=== PATIENT | male | born 2005 | race Two or more races ===

== ENCOUNTER 2024-01-31 06:26 | Inpatient (IN) | payer BC ==
[~2024-01-31] VITALS: Ht 180.3 cm; Wt 84.0 kg
[~2024-01-31 06:26] MED LIST: HYDR-4902 PO; LEVO500T31 PO; METR500T PO
--- NOTE | 2024-01-31 06:44 | ED.PDOC ---
GI ASSESSMENT HPI Comments 19Y M with PMHx appendectomy presents to ED for chief complaint nausea/vomiting since 0400 today. Pt states he woke up at 0400 with extreme abd pain and then had one episode of diarrhea. After the diarrhea, pt began to vomit. Pt states this has been happening 1-2 times per week but today has been the worst episode. Pt denies all flu-like/cold symptoms. Pt was bitten by a stray cat on fingertip last week. Pt uses marijuana. Pt denies alcohol and tobacco use. No known allergies. Chief Complaint: Nausea/Vomiting Time Seen by MD: 06:37 Reviewed Notes: Medications, Allergies Allergies: Coded Allergies: NO KNOWN ALLERGIES (Unverified , 05/25/22) Home Meds Active Scripts Hydrocodone-Acetaminophen (Hydrocodone Bitartrate/AC 5-325 mg) 1 Tab Tab, 1 TAB PO Q6HR PRN, #20 TAB Prov:NEMESIO RICARDO MD 05/27/22 Metronidazole (Flagyl) 500 Mg Tab, 500 MG PO TID, #21 TAB Prov:NEMESIO RICARDO MD 05/27/22 Levofloxacin (Levaquin) 500 Mg Tab, 500 MG PO DAILY, #7 TAB Prov:NEMESIO RICARDO MD 05/27/22 Information Source: Patient Mode of Arrival: Ambulatory Timing: Hours Duration: Since onset Quality: Sharp Vomitus: Watery Stool: Watery Severity: Moderate Recent: None Recent Hx of: None Pain Location: Diffuse Modifying Factors: Nothing Associated sign and symptoms: Nausea, Vomiting, Diarrhea, Abdominal Pain Past Medical History PAST MEDICAL HISTORY: Denies Surgical History: Appendectomy Family History Family History: Reviewed,noncontributory to illness Social History Smoker: Non-Smoker Alcohol: Denies ETOH Use Drugs: Marijuana Lives In: Home Constitutional: denies: chills, diaphoresis, fatigue, fever, malaise, sweats, weakness, others EENTM: denies: blurred vision, double vision, ear bleeding, ear discharge, ear drainage, ear pain, ear ringing, eye pain, eye redness, hearing loss, mouth pain, mouth swelling, nasal discharge, nose bleeding, nose congestion, nose pain, photophobia, tearing, throat pain, throat swelling, voice changes, others Respiratory: denies: cough, hemoptysis, orthopnea, SOB at rest, shortness of breath, SOB with excertion, stridor, wheezing, others Cardiovascular: denies: chest pain, dizzy spells, diaphoresis, Dyspnea on exertion, edema, irregular heart beat, left arm pain, lightheadedness, palpitations, PND, syncope, others Gastrointestinal: reports: abdominal pain, diarrhea, nausea, vomiting; denies: abdomen distended, blood streaked bowels, constipated, dysphagia, difficulty swallowing, hematemesis, melena, poor appetite, poor fluid intake, rectal bleeding, rectal pain, others Genitourinary: denies: burning, dysuria, flank pain, frequency, hematuria, incontinence, penile discharge, penile sore, pain, testicle pain, testicle swelling, urgency, others Neurological: denies: dizziness, fainting, headache, left sided numbness, left sided weakness, numbness, paresthesia, pre-existing deficit, right sided numbness, right sided weakness, seizure, speech problems, tingling, tremors, weakness, others Musculoskeletal: denies: back pain, gout, joint pain, joint swelling, muscle pain, muscle stiffness, neck pain, others Integumetry: denies: bruises, change in color, change in hair/nails, dryness, laceration, lesions, lumps, rash, wounds, others Allergic/Immunocompromised: denies: Difficulty Healing, Frequent Infections, Hives, Itching, others Hematologic/Lymphatic: denies: anemia, blood clots, easy bleeding, easy bruising, swollen glands, others Endocrine: denies: excessive hunger, excessive sweating, excessive thirst, excessive urination, flushing, intolerance to cold, intolerance to heat, unexplained weight gain, unexplained weight loss, others Psychiatric: denies: anxiety, bipolar disorder, depression, hopeless, panic disorder, schizophrenia, sleepless, suicidal, others All Other Systems: Reviewed and Negative Physical Exam General Appearance: Moderate Distress, Normal HEENT: Normal ENT Inspection, Pharynx Normal, TMs Normal Neck: Full Range of Motion, Non-Tender, Normal, Normal Inspection Respiratory: Chest Non-Tender, Lungs Clear, No Accessory Muscle Use, No Respiratory Distress, Normal Breath Sounds Cardiovascular: No Edema, No JVD, No Murmur, No Gallop, Normal Peripheral Pulses, Regular Rate/Rhythm Breast Exam: Deferred Gastrointestinal: No Organomegaly, Non Tender, No Pulsatile Mass, Normal Bowel Sounds, Soft Genitalia: Deferred Pelvic: Deferred Rectal: Deferred Extremities: No calf tenderness, Normal capillary refill, Normal inspection, Normal range of motion, Non-tender, No pedal edema Musculoskeletal : Apperance: Normal Neurologic: Alert, offal separator II-XII nml as Tested, No Motor Deficits, Normal Affect, Normal Mood, No Sensory Deficits Cerebellar Function: Normal Reflexes: Normal Skin: Dry, Normal Color, Warm Peripheral Pulses: 3+ Radial (R), 3+ Radial (L) Lymphatic: No Adenopathy Was a procedure done? Was a procedure done?: No GI differential Dx Differential Diagnosis: Constipation, Diverticular disease, Esophagitis, Gastritis/PUD, Gastroenteritis, Electrolyte Imbalance X-Ray, Labs, Meds, VS Vital Signs Date Time Temp Pulse Resp B/P (MAP) Pulse Ox O2 Delivery O2 Flow Rate FiO2 01/31/24 12:00 76 17 114/46 (68) 98 01/31/24 12:00 60 01/31/24 10:00 103 17 111/52 (71) 100 01/31/24 08:00 61 01/31/24 08:00 60 19 98 Room Air* 0 21 01/31/24 08:00 97.8 60 19 119/66 (83) 98 97.8 01/31/24 06:27 97.7 76 16 163/64 (97) 96 Lab Test 01/31/24 07:29 01/31/24 06:56 Range/Units Urine Color Yellow Yellow Urine Clarity Clear Clear Urine pH 6.0 5.0-9.0 Urine Specific [place] 1.026 1.001-1.035 Urine Protein Trace H Negative Urine Ketones 2+ H Negative Urine Blood Negative Negative /uL Urine Nitrite Negative Negative Urine Bilirubin Negative Negative Urine Urobilinogen Normal Negative mg/dL Urine Leukocyte Esterase Negative Negative /uL Urine RBC None seen 0 - 3 /hpf Urine WBC 1 0 - 3 /hpf Urine Squamous Epithelial Cells Few <5 /hpf Urine Bacteria None seen None Seen /hpf Urine Mucus Few None Seen Urine Glucose Normal Normal mg/dL White Blood Count 13.2 H 4.4-10.8 10^3/uL Red Blood Count 4.63 4.5-5.90 10^6/uL Hemoglobin 15.3 13.5-17.5 g/dL Hematocrit 43.4 41.0-53.0 % Mean Corpuscular Volume 93.7 80.0-100.0 fL Mean Corpuscular Hemoglobin 33.0 H 28.0-32.0 pg Mean Corpuscular Hemoglobin Concent 35.3 32.0-36.0 g/dL Red Cell Distribution Width 12.4 11.8-14.3 % Platelet Count 260 140-450 10^3/uL Mean Platelet Volume 8.5 6.9-10.8 fL Neutrophils (%) (Auto) 89.1 H 37.0-80.0 % Lymphocytes (%) (Auto) 5.6 L 10.0-50.0 % Monocytes (%) (Auto) 4.8 0.0-12.0 % Eosinophils (%) (Auto) 0.4 0.0-7.0 % Basophils (%) (Auto) 0.1 0.0-2.0 % Neutrophils # (Auto) 11.7 H 1.6-8.6 10 ^3/uL Lymphocytes # (Auto) 0.7 0.4-5.4 10 ^3/uL Monocytes # (Auto) 0.6 0-1.3 10 ^3/uL Eosinophils # (Auto) 0 0-0.8 10 ^3/uL Basophils # (Auto) 0 0-0.2 10 ^3/uL Nucleated Red Blood Cells 0.0 % Sodium Level 143 136-145 mmol/L Potassium Level 3.8 3.5-5.1 mmol/L Chloride Level 107 98-107 mmol/L Carbon Dioxide Level 23 20-31 mmol/L Anion Gap 13 5-15 Blood Urea Nitrogen 12 9-23 mg/dL Creatinine 0.97 0.700-1.30 mg/dL Glomerular Filtration Rate Calc 115 >90 mL/min BUN/Creatinine Ratio 12.4 10.0-20.0 Serum Glucose 107 H 74-106 mg/dL Calcium Level 10.4 8.7-10.4 mg/dL Current Medications Medications (Trade) Dose Ordered Sig/Eren Route Start Time Stop Time Status Last Admin Sodium Chloride 1,000 ml @ 1,000 mls/hr Q1H ONCE IV 01/31/24 06:45 01/31/24 07:44 DC 01/31/24 06:45 Ondansetron HCl (Zofran) 4 mg ONCE ONCE IV 01/31/24 06:45 01/31/24 06:46 DC 01/31/24 07:18 Metronidazole 100 ml @ 100 mls/hr ONCE ONCE IV 01/31/24 10:45 01/31/24 11:44 DC 01/31/24 11:[address] [address] Ph: [phone] DIAGNOSTIC IMAGING Diagnostic Imaging Report : [id number] Signed PATIENT: CONY POWELL ACCT: [id number] UNIT: [id number] : 2005 LOC: OVERFLOW ROOM / BED: 1015-ER / A AGE / SEX: 19 / M ADM STATUS: ADM IN SERVICE 1045 ORDERING PHYSICIAN: AARON JAMES MD PROCEDURE(s): ABPL - CT AB PEL WO CON-NO ORAL OR IV REASON: enteritis ORDER NUMBER(s): [id number], ACCESSION NUMBER(s): [id number] Exam: CT CT AB PEL WO CON-NO ORAL OR IV History: enteritis Comparison Study: CT CT AB PEL WO CON-NO ORAL OR IV on DOS: 05/25/22 Technique: Multidetector spiral CT of the abdomen was performed from lung bases to pubic symphysis. Imaging was performed without IV contrast. Axial, coronal and sagittal multiplanar reformats were obtained from the axial data set by the technologist. Radiation Dose : 1. Abdomen/Pelvis: CTDIvol 10.8 mGy, DLP 534.57 mGy*cm. Findings: Evaluation of solid organs is limited due to lack of intravenous contrast use. Lung Bases: No acute or significant lung base finding. Normal heart size. No pleural or pericardial effusion. Liver: The liver is normal in size. No focal lesions. Gallbladder and Biliary Tree: Unremarkable Spleen: Unremarkable Pancreas: The pancreas is grossly normal in appearance. Adrenal Glands: Unremarkable Kidneys: Kidneys are grossly normal without calculi or hydronephrosis. Bladder: Grossly unremarkable for degree of distention. Bowel: The stomach is grossly normal in appearance. Mild wall thickening seen in the descending colon with adjacent fat stranding, possibly related to infectious/inflammatory colitis. Status post appendectomy. Ascites: Absent Lymphadenopathy: No mesenteric, retroperitoneal or periportal lymphadenopathy. Abdominal Wall and Mesentery: Unremarkable. Vasculature: The visualized abdominal aorta is normal in size and caliber. Evaluation of abdominal and pelvic vessels is limited due to lack of intravenous contrast. Pelvic Organs: Unremarkable Musculoskeletal: No aggressive focal bony lesions, acute fractures or dislocation. IMPRESSION: 1. Mild wall thickening seen in the descending colon with adjacent fat stranding, possibly related to infectious/inflammatory colitis. No drainable fluid collection. No free air. Radiation optimization: All CT scans at this facility use at least one of these dose optimization techniques: automated exposure control mA and/or kV adjustment per patient size (includes targeted exams where dose is matched to clinical indication) or iterative reconstruction. ATED BY: GUSTAVO MENDEZ MD DICTATED DATE/TIME: 01/31/241407 SIGNED BY: GUSTAVO MENDEZ MD SIGNED DATE/TIME: 01/31/241407 CC: Patient alert. Complaining of nausea vomiting. Has been having these symptoms on and off for many years. Vitals stable. Answering questions. Abdomen is soft nontender. Blood pressure slightly elevated. He does not take any medication. Reviewed his history. Explained to the patient. Establish intravenous access. Was given fluids. Was given Zofran. Continue cardiac monitoring. Time of 1ST Reevaluation: 07:07 Reevaluation 1ST: Improved Patient Education/Counseling: Diagnosis, Treatment Family Education/Counseling: No Family Present Departure 1 Departure Time of Disposition: 07:02 Impression: Primary Impression: Gastroenteritis Disposition: 09 ADMITTED INPATIENT Admit to: Med Surg Condition: Guarded Critical Care Note Critical Care Time?: No Stability Stability form required: No Heart Score Heart Score: Heart Score Response (Comments) Value History N/A 0 EKG N/A 0 Age N/A 0 Risk Factors N/A 0 Troponin N/A 0 Total 0 I personally scribed for AARON JAMES MD ([email or web address]) on 01/31/24 at 06:44. Electronically submitted by Princess Melendez ([employer]). I personally scribed for AARON JAMES MD ([email or web address]) on 01/31/24 at 14:28. Electronically submitted by Princess Melendez ([employer]). AARON JAMES MD Jan 31, 2024 06:44
[2024-01-31] MEDS: SODIUM CHLORIDE 0.9% 1,000 ML IV ONE ×2 (06:45→12:57)
[2024-01-31 07:13] LABS: Basophils # (auto) 0 10 ^3/uL (0-0.2); Basophils % (auto) 0.1 % (0.0-2.0); Eosinophils # (auto) 0 10 ^3/uL (0-0.8); Eosinophils % (auto) 0.4 % (0.0-7.0); Hematocrit 43.4 % (41.0-53.0); Hemoglobin 15.3 g/dL (13.5-17.5); Lymphocytes # (auto) 0.7 10 ^3/uL (0.4-5.4); Lymphocytes % (auto) 5.6 % (10.0-50.0); Mean Corpuscular Hgb Conc. 35.3 g/dL (32.0-36.0); Mean Corpuscular Volume 93.7 fL (80.0-100.0); Monocytes # (auto) 0.6 10 ^3/uL (0-1.3); Monocytes % (auto) 4.8 % (0.0-12.0); Neutrophils # (auto) 11.7 10 ^3/uL (1.6-8.6); Neutrophils % (auto) 89.1 % (37.0-80.0); Platelet Count (auto) 260 10^3/uL (140-450); Red Blood Cells 4.63 10^6/uL (4.5-5.90); Red Cell Distribution Width 12.4 % (11.8-14.3); White Blood Cell 13.2 10^3/uL (4.4-10.8)
[2024-01-31] MEDS: ONDANSETRON HCL 4 MG/2 ML VIAL IV ONE (07:18)
[2024-01-31 07:20] LABS: Chloride 107 mmol/L (98-107); Potassium 3.8 mmol/L (3.5-5.1); Sodium 143 mmol/L (136-145)
[2024-01-31 07:21] LABS: Anion Gap 13 (5-15); Carbon Dioxide 23 mmol/L (20-31)
[2024-01-31 07:22] LABS: Calcium 10.4 mg/dL (8.7-10.4)
[2024-01-31 07:27] LABS: BUN/Creatinine Ratio 12.4 (10.0-20.0); Blood Urea Nitrogen 12 mg/dL (9-23); Glucose 107 mg/dL (74-106)
[2024-01-31 08:00] VITALS: PULSE 60; RESP 19; O2SAT 98
[2024-01-31 10:54] LABS: Urine Bacteria None Seen /hpf (None Seen)
[2024-01-31 11:00] LABS: Urine Blood Negative /uL (Negative); Urine Clarity Clear (Clear); Urine Color Yellow (Yellow); Urine Mucus FEW (None Seen); Urine Protein, UAD TRACE (Negative); Urine Specific Gravity 1.026 (1.001-1.035); Urine Urobilinogen Normal (Negative); Urine WBC 1 /hpf (0 - 3)
[2024-01-31] MEDS: metroNIDAZOLE 500MG/100ML 100 ML IV ONE (11:00)
[2024-01-31] MEDS ORDERED: ACETAMINOPHEN 325 MG TAB PO PRN (12:45)
[2024-01-31] MEDS ORDERED: ONDANSETRON HCL 4 MG/2 ML VIAL IV PRN (12:45)
[2024-01-31] MEDS: SODIUM CHLORIDE 0.9% 1,000 ML IV SCH (12:57)
[2024-01-31] MEDS: PANTOPRAZOLE 40 MG/10 ML VIAL INJ IV ONE (12:57)
--- NOTE | 2024-01-31 13:27 | DVHHP2 ---
History of Present Illness Reason for Visit: Abdominal pain likely due to food poisoning History of Present Illness This is a 19-year-old male with history of appendectomy presents to ED with chief complaint of nausea, vomiting and diarrhea that started this morning at 4:00 a.m.. The patient admits to using marijuana. Upon evaluation of patient he comments on eating at a restaurant [place] soup last night in which symptoms occurred hours later. He denied having symptoms of this before and would like to be further evaluated and treated. The patient will be admitted under hospitalist care to the medical-surgical unit and received IV hydration along with IV antibiotics that was started in the ER. The patient denies fever, chills, headache, dizziness, palpitation, chest pain, shortness of breath, constipation and other associated symptoms. The plan has been discussed with the patient in which all questions concerns have been addressed. Past Surgical History: Appendectomy Smoke: No ALCOHOL: none Drugs: Marijuana Lives: with Family Domestic Violence: Neg Review of Systems Gastrointestinal: Nausea, Vomiting, Abdominal Pain, Diarrhea Allergies: Coded Allergies: NO KNOWN ALLERGIES (Unverified , 05/25/22) Medications Current Medications Medications Dose Ordered Sig/Eren Route Start Time Stop Time Status Last Admin Dose Admin Metronidazole 100 ml @ 100 mls/hr Q8HR IV 01/31/24 14:00 Ondansetron HCl 4 mg Q6HPRN PRN IV 01/31/24 12:45 Sodium Chloride 1,000 ml @ 75 mls/hr [id number] IV 01/31/24 12:45 Acetaminophen 650 mg Q6HP PRN PO 01/31/24 12:45 Pantoprazole Sodium 40 mg DAILY IV 02/01/24 10:00 Exam Vital Signs Vital Signs Date Time Temp Pulse Resp B/P (MAP) Pulse Ox O2 Delivery O2 Flow Rate FiO2 01/31/24 12:00 76 17 114/46 (68) 98 01/31/24 08:00 Room Air* 0 21 01/31/24 08:00 97.8 97.8 General Appearance: Alert, Oriented X3, Cooperative, No acute distress HEENT: Atraumatic, PERRLA, Mucous membr. moist/pink Respiratory: Clear to auscultation, Normal air movement Cardiovascular: Normal S1, Normal S2, No murmurs Abdominal: Normal bowel sounds, Soft, No tenderness, No hepatospenomegaly, No masses Extremities: No clubbing, No cyanosis, No edema, Normal pulses, No tenderness/swelling Skin: No rashes, No breakdown Neuro: Normal gait, Normal speech, Strength at 5/5 X4 ext, Normal tone, Sensation intact, Cranial nerves 3-12 NL Psych/Mental Status: Mental status NL Labs/Xrays Labs Test 01/31/24 07:29 01/31/24 06:56 Range/Units Urine Color Yellow Yellow Urine Clarity Clear Clear Urine pH 6.0 5.0-9.0 Urine Specific [place] 1.026 1.001-1.035 Urine Protein Trace H Negative Urine Ketones 2+ H Negative Urine Blood Negative Negative /uL Urine Nitrite Negative Negative Urine Bilirubin Negative Negative Urine Urobilinogen Normal Negative mg/dL Urine Leukocyte Esterase Negative Negative /uL Urine RBC None seen 0 - 3 /hpf Urine WBC 1 0 - 3 /hpf Urine Squamous Epithelial Cells Few <5 /hpf Urine Bacteria None seen None Seen /hpf Urine Mucus Few None Seen Urine Glucose Normal Normal mg/dL White Blood Count 13.2 H 4.4-10.8 10^3/uL Red Blood Count 4.63 4.5-5.90 10^6/uL Hemoglobin 15.3 13.5-17.5 g/dL Hematocrit 43.4 41.0-53.0 % Mean Corpuscular Volume 93.7 80.0-100.0 fL Mean Corpuscular Hemoglobin 33.0 H 28.0-32.0 pg Mean Corpuscular Hemoglobin Concent 35.3 32.0-36.0 g/dL Red Cell Distribution Width 12.4 11.8-14.3 % Platelet Count 260 140-450 10^3/uL Mean Platelet Volume 8.5 6.9-10.8 fL Neutrophils (%) (Auto) 89.1 H 37.0-80.0 % Lymphocytes (%) (Auto) 5.6 L 10.0-50.0 % Monocytes (%) (Auto) 4.8 0.0-12.0 % Eosinophils (%) (Auto) 0.4 0.0-7.0 % Basophils (%) (Auto) 0.1 0.0-2.0 % Neutrophils # (Auto) 11.7 H 1.6-8.6 10 ^3/uL Lymphocytes # (Auto) 0.7 0.4-5.4 10 ^3/uL Monocytes # (Auto) 0.6 0-1.3 10 ^3/uL Eosinophils # (Auto) 0 0-0.8 10 ^3/uL Basophils # (Auto) 0 0-0.2 10 ^3/uL Nucleated Red Blood Cells 0.0 % Sodium Level 143 136-145 mmol/L Potassium Level 3.8 3.5-5.1 mmol/L Chloride Level 107 98-107 mmol/L Carbon Dioxide Level 23 20-31 mmol/L Anion Gap 13 5-15 Blood Urea Nitrogen 12 9-23 mg/dL Creatinine 0.97 0.700-1.30 mg/dL Glomerular Filtration Rate Calc 115 >90 mL/min BUN/Creatinine Ratio 12.4 10.0-20.0 Serum Glucose 107 H 74-106 mg/dL Calcium Level 10.4 8.7-10.4 mg/dL Assessment/Plan Assessment/Plan Abdominal pain likely due to food poisoning--patient presents to ED with abdominal pain associated with nausea, vomiting and diarrhea that started this morning at 4:00 a.m. Patient comments on having a [place] soup last night when symptoms occurred hours later No previous history History of appendectomy Admit to medical-surgical unit Reviewed CBC shows leukocytosis Reviewed BMP which is normal Urinalysis is normal Order a CT abdomen/pelvis pending result IV hydration IV antibiotics Toradol for pain IV Zofran as needed for nausea IV Protonix now and daily Ova and parasite pending Stool bacterial culture pending C diff pending Reconcile home medication DVT prophylaxis not indicated patient ambulatory PUD prophylaxis Labs in a.m. Discussed plan of care with the patient in which all questions concerns have been addressed Plan discussed with: Patient My Orders Orders - KEVIN NAYLOR [employer] Procedure Category Date Status Time Metronidazole PHA 01/31/24 In Process 500mg/100ml (Flagyl 14:00 Sodium Chloride 0.9% PHA 01/31/24 In Process 12:45 Ondansetron Hcl PHA 01/31/24 In Process (Zofran) 12:45 Admit ADMIT 01/31/24 Transmitted 12:42 Sodium Chloride 0.9% PHA 01/31/24 In Process 12:45 Complete Blood Count LAB 02/01/24 Verified 04:00 Comprehensive LAB 02/01/24 Verified Metabolic Panel 04:00 Condition: Fair STACEY 01/31/24 In Process 12:42 Acetaminophen Tablet PHA 01/31/24 In Process (Tylenol Tablet) 12:45 Clear Liq Diet DIET 01/31/24 Transmitted Lunch BRP STACEY 01/31/24 In Process 12:42 Ova & Parasite Exam SUMMER 01/31/24 Logged 12:44 Clostridium Difficile SUMMER 01/31/24 Logged Toxin 12:44 Stool Bacterial SUMMER 01/31/24 Logged Culture 12:44 Pantoprazole PHA 02/01/24 In Process (Protonix) 10:00 Date of Service: Jan 31, 2024 Billing Provider: KEVIN NAYLOR Common Visit Codes: [id number] INP/OBS CARE (HIGH) KEVIN NAYLOR Jan 31, 2024 13:27
--- NOTE | 2024-01-31 14:10 | DVH ---
Exam: CT CT AB PEL WO CON-NO ORAL OR IV History: enteritis Comparison Study: CT CT AB PEL WO CON-NO ORAL OR IV on DOS: 05/25/22 Technique: Multidetector spiral CT of the abdomen was performed from lung bases to pubic symphysis. Imaging was performed without IV contrast. Axial, coronal and sagittal multiplanar reformats were ob tained from the axial data set by the technologist. Radiation Dose : 1. Abdomen/Pelvis: CTDIvol 10.8 mGy, DLP 534.57 mGy*cm. Findings: Evaluation of solid organs is limited due to lack of intravenous contrast use. Lung Bases: No acute or significant lung base finding. Normal heart size. No pleural or pericardial effusion. Liver: The liver is normal in size. No focal lesions. Gallbladder and Biliary Tree: Unremarkable Spleen: Unremarkable Pancreas: The pancreas is grossly normal in appearance. Adrenal Glands: Unremarkable Kidneys: Kidneys are grossly normal without calculi or hydronephrosis. Bladder: Grossly unremarkable for degree of distention. Bowel: The stomach is grossly normal in appearance. Mild wall thickening seen in the descending colon with adjacent fat stranding, possibly related to infectious/inflammatory colitis. Status post appen dectomy. Ascites: Absent Lymphadenopathy: No mesenteric, retroperitoneal or periportal lymphadenopathy. Abdominal Wall and Mesentery: Unremarkable. Vasculature: The visualized abdominal aorta is normal in size and caliber. Evaluation of abdominal a nd pelvic vessels is limited due to lack of intravenous contrast. Pelvic Organs: Unremarkable Musculoskeletal: No aggressive focal bony lesions, acute fractures or dislocation. IMPRESSION: 1. Mild wall thickening seen in the descending colon with adjacent fat stranding, possibly related to infectious/inflammatory colitis. No drainable fluid collection. No free air. Radiation optimization: All CT scans at this facility use at least one of these dose optimization jeff hniques: automated exposure control mA and/or kV adjustment per patient size (includes targeted exam s where dose is matched to clinical indication) or iterative reconstruction.
[2024-01-31] MEDS: metroNIDAZOLE 500MG/100ML 100 ML IV SCH (14:42)
[2024-02-01 03:36] LABS: Basophils # (auto) 0 10 ^3/uL (0-0.2); Basophils % (auto) 0.3 % (0.0-2.0); Eosinophils # (auto) 0 10 ^3/uL (0-0.8); Eosinophils % (auto) 0.6 % (0.0-7.0); Hematocrit 36.1 % (41.0-53.0); Hemoglobin 12.8 g/dL (13.5-17.5); Lymphocytes # (auto) 0.9 10 ^3/uL (0.4-5.4); Lymphocytes % (auto) 15.2 % (10.0-50.0); Mean Corpuscular Hemoglobin 33.4 pg (28.0-32.0); Mean Corpuscular Hgb Conc. 35.6 g/dL (32.0-36.0); Mean Corpuscular Volume 93.9 fL (80.0-100.0); Monocytes # (auto) 0.8 10 ^3/uL (0-1.3); Monocytes % (auto) 13.2 % (0.0-12.0); Neutrophils # (auto) 4.3 10 ^3/uL (1.6-8.6); Neutrophils % (auto) 70.7 % (37.0-80.0); Nucleated Red Blood Cells % 0.1 %; Platelet Count (auto) 185 10^3/uL (140-450); Red Blood Cells 3.84 10^6/uL (4.5-5.90); Red Cell Distribution Width 12.7 % (11.8-14.3); White Blood Cell 6.1 10^3/uL (4.4-10.8)
[2024-02-01 04:06] LABS: Alkaline Phosphatase 55 U/L (46-116); Anion Gap 8 (5-15); Aspartate Aminotransferase < 8 U/L (13-40); BUN/Creatinine Ratio 8.2 (10.0-20.0); Bilirubin, Total 1.1 mg/dL (0.2-1.0); Blood Urea Nitrogen 7 mg/dL (9-23); Calcium 9.4 mg/dL (8.7-10.4); Carbon Dioxide 24 mmol/L (20-31); Chloride 110 mmol/L (98-107); Glucose 90 mg/dL (74-106); Potassium 3.9 mmol/L (3.5-5.1); Sodium 142 mmol/L (136-145); Total Protein 6.1 g/dL (5.7-8.2)
[2024-02-01 04:11] LABS: Alanine Aminotransferase < 9 U/L (7-40)
[2024-02-01 08:05] VITALS: PULSE 63; RESP 99; O2SAT 99
[2024-02-01 09:20] VITALS: PULSE 60; RESP 16; O2SAT 99
[2024-02-01] MEDS: PANTOPRAZOLE 40 MG/10 ML VIAL INJ IV SCH (11:20)
[2024-02-01 13:23] VITALS: BP 125/57; PULSE 57; RESP 18; TEMP 99.1; O2SAT 98
--- NOTE | 2024-02-01 14:20 | DVHPN2 ---
Subjective Patient denies any symptoms at this time. States that he has not had any diarrhea today. Reviewed: Care Plan, H&P, Labs Changes from previous H/P or p: No Changes General: Per HPI Gastrointestinal: Nausea, Vomiting, Abdominal Pain, Diarrhea Objective Vitals Vital Signs Date Time Temp Pulse Resp B/P (MAP) Pulse Ox O2 Delivery O2 Flow Rate FiO2 02/01/24 13:23 99.1 57 18 125/57 (79) 98 99.1 02/01/24 09:20 Room Air* 0 21 Intake/Output Intake and Output 02/01/24 07:00 Intake Total 3750 ml Output Total 50 ml Balance 3700 ml Intake IV Total 3750 ml Output Emesis 50 ml General Appearance: Alert, Oriented X3, Cooperative, No acute distress HEENT: Atraumatic, PERRLA Lungs: Clear to auscultation, Normal air movement Cardiovascular: Normal S1, Normal S2 Abdomen: Normal bowel sounds Musculoskeletal: Normal sensory function, Normal motor function Neuro: Normal gait, Normal speech Psych/Mental Status: Mental status NL, Mood NL Medications Current Medications Medications Dose Ordered Sig/Eren Route Start Time Stop Time Status Last Admin Dose Admin Metronidazole 100 ml @ 100 mls/hr Q8HR IV 01/31/24 14:00 02/01/24 13:46 100 MLS/HR Ondansetron HCl 4 mg Q6HPRN PRN IV 01/31/24 12:45 Sodium Chloride 1,000 ml @ 75 mls/hr [id number] IV 01/31/24 12:45 02/01/24 13:20 75 MLS/HR Acetaminophen 650 mg Q6HP PRN PO 01/31/24 12:45 Pantoprazole Sodium 40 mg DAILY IV 02/01/24 10:00 02/01/24 11:20 40 MG Laboratory Results Laboratory Tests 02/01/24 03:15 Chemistry Test 02/01/24 03:15 Albumin 4.0 g/dL (3.2-4.8) Calcium Level 9.4 mg/dL (8.7-10.4) Total Protein 6.1 g/dL (5.7-8.2) LFT Test 02/01/24 03:15 Alanine Aminotransferase (ALT) < 9 U/L (7-40) Alkaline Phosphatase 55 U/L (46-116) Aspartate Amino Transferase (AST) < 8 U/L (13-40) L Total Bilirubin 1.1 mg/dL (0.2-1.0) H Urinalysis Test 01/31/24 07:29 Urine Color Yellow (Yellow) Urine Clarity Clear (Clear) Urine pH 6.0 (5.0-9.0) Urine Specific [place] 1.026 (1.001-1.035) Urine Protein Trace (Negative) H Urine Ketones 2+ (Negative) H Urine Blood Negative /uL (Negative) Urine Nitrite Negative (Negative) Urine Bilirubin Negative (Negative) Urine Urobilinogen Normal mg/dL (Negative) Urine Leukocyte Esterase Negative /uL (Negative) Urine RBC None seen /hpf (0 - 3) Urine WBC 1 /hpf (0 - 3) Urine Squamous Epithelial Cells Few /hpf (<5) Urine Bacteria None seen /hpf (None Seen) Urine Mucus Few (None Seen) Urine Glucose Normal mg/dL (Normal) Microbiology Microbiology Date/Time Source Procedure Growth Status 01/31/24 07:29 Urine - Midstream Clean Catch Urine Culture - Preliminary Resulted Labs and/or images reviewed: Labs reviewed by me, Image(s) reviewed by me Assessment/Plan Assessment/Plan Impression: -leukocytosis -acute colitis -rule out C diff Plan: -continue antibiotic therapy -stool culture -continue gentle IV hydration -advanced to regular diet -repeat labs in a.m. Total time spent with patient discussing and formulating plan of care: 35 minutes. This medical document was created using an electronic medical record system with [employer] dictation system. Although this document has been carefully reviewed, there may still be some phonetic and typographical errors. These areas are purely typographical due to imperfections of the software programs, and do not reflect any compromise in the patient's medical care. Plan discussed with: Patient, Other (RN) Date of Service: Feb 01, 2024 Billing Provider: CAROL SCHAFFER NP Common Visit Codes: [id number] INP/OBS CARE(HIGH) CAROL SCHAFFER NP Feb 01, 2024 14:20
[2024-02-01 17:00] VITALS: BP 126/67; PULSE 48; RESP 19; TEMP 98.1; O2SAT 99
[2024-02-01 20:00] VITALS: O2SAT 97
[2024-02-01 21:00] VITALS: BP 114/75; PULSE 57; RESP 20; TEMP 98; O2SAT 98
[2024-02-02 01:00] VITALS: BP 122/68; PULSE 58; RESP 20; TEMP 97.5; O2SAT 97
[2024-02-02 05:03] VITALS: BP 110/48; PULSE 50; RESP 20; TEMP 97.6; O2SAT 100
[2024-02-02 07:27] LABS: Basophils # (auto) 0 10 ^3/uL (0-0.2); Basophils % (auto) 0.7 % (0.0-2.0); Eosinophils # (auto) 0.1 10 ^3/uL (0-0.8); Eosinophils % (auto) 3.1 % (0.0-7.0); Hematocrit 41.1 % (41.0-53.0); Hemoglobin 14.4 g/dL (13.5-17.5); Lymphocytes # (auto) 1.3 10 ^3/uL (0.4-5.4); Lymphocytes % (auto) 26.4 % (10.0-50.0); Mean Corpuscular Hemoglobin 33.2 pg (28.0-32.0); Mean Corpuscular Hgb Conc. 35.1 g/dL (32.0-36.0); Mean Corpuscular Volume 94.5 fL (80.0-100.0); Monocytes # (auto) 0.8 10 ^3/uL (0-1.3); Monocytes % (auto) 16.4 % (0.0-12.0); Neutrophils # (auto) 2.5 10 ^3/uL (1.6-8.6); Neutrophils % (auto) 53.4 % (37.0-80.0); Nucleated Red Blood Cells % 0.3 %; Platelet Count (auto) 209 10^3/uL (140-450); Red Blood Cells 4.35 10^6/uL (4.5-5.90); Red Cell Distribution Width 12.6 % (11.8-14.3); White Blood Cell 4.7 10^3/uL (4.4-10.8)
[2024-02-02 07:35] LABS: Chloride 108 mmol/L (98-107); Potassium 4.4 mmol/L (3.5-5.1); Sodium 142 mmol/L (136-145)
[2024-02-02 07:36] LABS: Anion Gap 7 (5-15); Carbon Dioxide 27 mmol/L (20-31)
[2024-02-02 07:41] LABS: BUN/Creatinine Ratio 9.4 (10.0-20.0); Blood Urea Nitrogen 10 mg/dL (9-23); Glucose 83 mg/dL (74-106)
[2024-02-02 08:00] VITALS: PULSE 81; RESP 16; O2SAT 98
[2024-02-02 09:00] VITALS: BP 118/70; PULSE 86; RESP 18; TEMP 97.6; O2SAT 98
[2024-02-02 12:38] VITALS: BP 134/64; PULSE 52; RESP 18; TEMP 98; O2SAT 98
[2024-02-02] MEDS ORDERED: METR-344 PO (13:27)
[2024-02-02] MEDS ORDERED: HYDROcodone-ACET 5/325MG TAB PO PRN (13:30)
[2024-02-02] MEDS ORDERED: ACETAMINOPHEN 500 MG TAB PO PRN (13:30)
[2024-02-02] MEDS ORDERED: ONDANSETRON HCL 4 MG/2 ML VIAL IV PRN (13:30)
[2024-02-02] MEDS ORDERED: MORPHINE SULFATE INJ 2 MG/ml SYRG IV PRN (13:30)
--- NOTE | 2024-02-02 13:40 | DVHDS2 ---
Discharge Summary Date of Admission Jan 31, 2024 at 12:42 Date of Discharge: Feb 02, 2024 Admitting Diagnosis Abdominal pain Labs/Diagnostic Data: Laboratory Results Test 02/02/24 05:32 02/01/24 03:15 01/31/24 07:29 White Blood Count 4.7 10^3/uL (4.4-10.8) Red Blood Count 4.35 10^6/uL (4.5-5.90) Hemoglobin 14.4 g/dL (13.5-17.5) Hematocrit 41.1 % (41.0-53.0) Mean Corpuscular Volume 94.5 fL (80.0-100.0) Mean Corpuscular Hemoglobin 33.2 pg (28.0-32.0) Mean Corpuscular Hemoglobin Concent 35.1 g/dL (32.0-36.0) Red Cell Distribution Width 12.6 % (11.8-14.3) Platelet Count 209 10^3/uL (140-450) Mean Platelet Volume 8.9 fL (6.9-10.8) Neutrophils (%) (Auto) 53.4 % (37.0-80.0) Lymphocytes (%) (Auto) 26.4 % (10.0-50.0) Monocytes (%) (Auto) 16.4 % (0.0-12.0) Eosinophils (%) (Auto) 3.1 % (0.0-7.0) Basophils (%) (Auto) 0.7 % (0.0-2.0) Neutrophils # (Auto) 2.5 10 ^3/uL (1.6-8.6) Lymphocytes # (Auto) 1.3 10 ^3/uL (0.4-5.4) Monocytes # (Auto) 0.8 10 ^3/uL (0-1.3) Eosinophils # (Auto) 0.1 10 ^3/uL (0-0.8) Basophils # (Auto) 0 10 ^3/uL (0-0.2) Nucleated Red Blood Cells 0.3 % Sodium Level 142 mmol/L (136-145) Potassium Level 4.4 mmol/L (3.5-5.1) Chloride Level 108 mmol/L (98-107) Carbon Dioxide Level 27 mmol/L (20-31) Anion Gap 7 (5-15) Blood Urea Nitrogen 10 mg/dL (9-23) Creatinine 1.06 mg/dL (0.700-1.30) Glomerular Filtration Rate Calc 103 mL/min (>90) BUN/Creatinine Ratio 9.4 (10.0-20.0) Serum Glucose 83 mg/dL (74-106) Calcium Level 10.0 mg/dL (8.7-10.4) Total Bilirubin 1.1 mg/dL (0.2-1.0) Aspartate Amino Transferase (AST) < 8 U/L (13-40) Alanine Aminotransferase (ALT) < 9 U/L (7-40) Alkaline Phosphatase 55 U/L (46-116) Total Protein 6.1 g/dL (5.7-8.2) Albumin 4.0 g/dL (3.2-4.8) Urine Color Yellow (Yellow) Urine Clarity Clear (Clear) Urine pH 6.0 (5.0-9.0) Urine Specific [place] 1.026 (1.001-1.035) Urine Protein Trace (Negative) Urine Ketones 2+ (Negative) Urine Blood Negative /uL (Negative) Urine Nitrite Negative (Negative) Urine Bilirubin Negative (Negative) Urine Urobilinogen Normal mg/dL (Negative) Urine Leukocyte Esterase Negative /uL (Negative) Urine RBC None seen /hpf (0 - 3) Urine WBC 1 /hpf (0 - 3) Urine Squamous Epithelial Cells Few /hpf (<5) Urine Bacteria None seen /hpf (None Seen) Urine Mucus Few (None Seen) Urine Glucose Normal mg/dL (Normal) Other Laboratory Tests 02/02/24 05:32 Brief Hx & Hospital Course: History of Present Illness This is a 19-year-old male with history of appendectomy presents to ED with chief complaint of nausea, vomiting and diarrhea that started this morning at 4:00 a.m.. The patient admits to using marijuana. Upon evaluation of patient he comments on eating at a restaurant [employer] soup last night in which symptoms occurred hours later. He denied having symptoms of this before and would like to be further evaluated and treated. The patient will be admitted under hospitalist care to the medical-surgical unit and received IV hydration along with IV antibiotics that was started in the ER. The patient denies fever, chills, headache, dizziness, palpitation, chest pain, shortness of breath, constipation and other associated symptoms. The plan has been discussed with the patient in which all questions concerns have been addressed. Course of hospitalization: CT scan was performed of the abdomen and pelvis which revealed acute colitis. Patient had multiple bouts of diarrhea coming to the hospital. Also had bouts of nausea. Patient was given IV hydration. Patient was started on antibiotic therapy. Symptoms have resolved. White blood cell count is now normal. Patient was tolerating oral intake. No diarrhea has been appreciated today or yesterday. He is agreeable to be discharged home, continued on oral antibiotic therapy with Flagyl 500 mg p.o. 3 times a day for five days as instructed to follow up with his PCP in 1-2 weeks. Physical examination General: Alert and Oriented x3. No acute distress. Well-nourished. Eyes: EOMI. Anicteric. HENT: Moist mucous membranes. Lungs: Clear to auscultation bilaterally. No accessory muscle use. Cardiovascular: Regular rate and rhythm. No murmur. No JVD. Abdomen: Soft, non-tender and non-distended. No palpable masses. Extremities: No edema. Non-tender. Skin: No rashes or lesions. Warm. Neurologic: No focal neurological deficits. CN II-XII grossly intact, but not individually tested. Psychiatric: Cooperative. Appropriate mood and affect. Total time spent with patient discussing and formulating plan of care: 35 minutes. This medical document was created using an electronic medical record system with [employer] dictation system. Although this document has been carefully reviewed, there may still be some phonetic and typographical errors. These areas are purely typographical due to imperfections of the software programs, and do not reflect any compromise in the patient's medical care. Condition at Discharge: Good Final Diagnosis/Problems List Acute Colitis Secondary Diagnosis: -leukocytosis -acute colitis -ruled out C diff Discharge Disposition: Home Discharge Instruct/Medications Diet: Regular Activity: No Restrictions, As Tolerated Follow Up/Referral: Follow up with the PCP in 1-2 weeks Medications: Flagyl 500 mg p.o. q.8 hours for five days 36 Discharge Statement: "Patient was advised to return to the ER or call 911 if any headaches, dizziness, shortness of breath, chest pain, abdominal pain, bleeding, fevers, or worsening of medical condition. Patient was counseled about treatment plan, medications, possible side effects, patientverbalized understanding. All questions were answered to the best of my ability. This discharge took greater then 30 minutes in planning, reviewing documentation, counseling the patient, and discussing with other team members." ASSESSMENT ASSESSMENT Assessment Acute Colitis Date of Service: Feb 02, 2024 Billing Provider: CAROL SCHAFFER NP Common Visit Codes: 03838-YZE/OBS DISCH DAY >30min CAROL SCHAFFER NP Feb 02, 2024 13:40
== END 2024-02-02 16:30 | disposition home or self-care (01) | DRG 392 ==
LOC: ER 06:26 → OVERFLOW 12:42 → EAST 12:44
PROVIDERS: ADMIT Nurse Practitioner Family; ATTEND Nurse Practitioner Acute Care
DX: K52.9 Noninfective gastroenteritis and colitis, unspecified (principal); Z90.49 Acquired absence of other specified parts of digestive tract; Z79.899 Other long term (current) drug therapy
CPT/HCPCS: 36415; 74176; 80048; 80053; 81001; 85025; 87086; 87177; 96374; G0378; J2405; J2470; J3490